=== PATIENT | female | born 1980 | race Two or more races ===

== ENCOUNTER 2018-05-15 10:23 | Day surgery (SDC) | payer OTHER ==
[~2018-05-15] VITALS: Ht 157.5 cm; Wt 72.1 kg
[~2018-05-15 10:23] MED LIST: MICRONOR0.35 MG PO; MULTIVITAMIN1 EAC2 PO; Motrin PO; Percocet 5/325,Endoc PO
[2018-05-15 10:59] VITALS: BP 172/94
[2018-05-15 11:09] LABS: BASOPHIL (%) 0.5 % (0-1); BASOPHIL COUNT 0.1 K/uL (0-0.1); EOSINOPHIL (%) 3.1 % (0-5); EOSINOPHIL COUNT 0.3 K/uL (0-0.3); HEMATOCRIT 38.1 % (36.0-46.0); HEMOGLOBIN 12.1 G/DL (11.9-15.5); IMMATURE GRANULOCYTE (%) 0.4 % (0.0-0.7); LYMPHOCYTE (%) 13.6 % (15-42); LYMPHOCYTE COUNT 1.4 K/uL (1.0-2.8); MCH 26.1 PG (29.0-34.0); MCHC 31.8 G/DL (30.0-36.0); MCV 82.1 FL (83-99); MONOCYTE (%) 8.6 % (3-12); MONOCYTE COUNT 0.9 K/uL (0-0.8); NEUTROPHIL (%) 73.8 % (45-76); NEUTROPHIL COUNT 7.5 K/uL (1.8-6.4); PLATELET COUNT 292 K/uL (156-360); RBC DIS.WIDTH-CV 15.8 % (11.8-14.6); RBC DIS.WIDTH-SD 46.9 % (39-53); RED BLOOD COUNT 4.64 M/uL (3.80-5.20); WHITE BLOOD COUNT 10.2 K/uL (4.1-10.2)
[2018-05-15] MEDS ORDERED: IBUPROFEN800 MG PO (13:20)
[2018-05-15] MEDS ORDERED: ENDOCET 5-3251 EACH PO (13:20)
[2018-05-15 15:04] VITALS: BP 147/91
[2018-05-15 16:10] VITALS: BP 131/76
== END 2018-05-15 16:15 | disposition home or self-care (01) ==
LOC: SDC 10:23
PROVIDERS: Obstetrics & Gynecology
PROC: 0U574ZZ Destruction of Bilateral Fallopian Tubes, Percutaneous Endoscopic Approach (ICD-10-PCS; principal; 2018-05-15)
DX: Z30.2 Encounter for sterilization (principal); D25.9 Leiomyoma of uterus, unspecified; Z87.891 Personal history of nicotine dependence
CPT/HCPCS: 81025; 85025; 86850; 86900; 86901; J0330; J1100; J1170; J1885; J2405; J2710; J3010; J7643